=== PATIENT | male | born 1950 | race Caucasian/White ===

== ENCOUNTER 2018-12-28 05:37 | Outpatient (CLI) | payer MEDICARE ==
[~2018-12-28] VITALS: Ht 172 cm; Wt 81.8 kg
[~2018-12-28 05:37] MED LIST: HYDR-34 PO; STOOL SOFTNER
[2018-12-28] MEDS ORDERED: ASPI-586 PO (14:41)
[2018-12-28] MEDS ORDERED: SIMV20TA3 PO (14:41)
== END 2018-12-28 14:59 | disposition home or self-care (01) ==
LOC: PREOP 05:37
PROVIDERS: ATTEND Surgery
DX: Z01.818 Encounter for other preprocedural examination (principal)

== ENCOUNTER → 2019-01-04 | Day surgery (SDC) | payer MEDICARE, OTHER ==
[2019-01-04] VITALS (9 sets, daily range): BP systolic 116–139; BP diastolic 67–94
[~2019-01-04] VITALS: Ht 172.7 cm; Wt 81.8 kg
[~2019-01-04] MED LIST changes: +ACETAMINOPHEN 325 MG TABLET PO PRN; +ASPI-586 PO; +HYDROcodone/APAP 5 MG/325 MG (LORTAB) TAB PO PRN; +LIDOCAINE JELLY 2% 6 ML SYRINGE MM PRN; +NS IV 500 ML 500 ML IV PRN; +NS IV 500 ML 500 ML ONE; +ONDANSETRON 4 MG/2 ML (SDV) Z0FRAN IVP PRN; +SIMV20TA3 PO; +fentaNYL INJECTION 100 MCG/2 ML AMP IVP ONE; +morphine INJ 10 MG/ML 1ML (SYR OR VIAL) IVP PRN
--- NOTE | 2019-01-04 09:32 | Progress Note-Pre Operative ---
Pre-Operative Progress Note H&P Reviewed The H&P was reviewed, patient examined and no changes noted. Date Seen by Provider: Jan 04, 2019 Time Seen by Provider: 09:00 Date H&P Reviewed: Jan 04, 2019 Time H&P Reviewed: 09:00 Pre-Operative Diagnosis: JUSTIN Cullen MD Jan 04, 2019 09:32
--- NOTE | 2019-01-04 09:32 | Conscious Sedation/ASA ---
Conscious Sedation Pre-Proced Time 09:00 ASA Score 2 For ASA 3 and 4: Consider anesthesia and medical clearance. Also, for patients with a history of failed moderate sedation consider anesthesia. Airway Lungs Heart ASA score ASA 1: a normal healthy patient ASA 2: a patient with a mild systemic disease (mid diabetes, controlled hypertension, obesity ASA 3: a patient with a severe systemic disease that limits activity (angina, COPD, prior Myocardial infarction) ASA 4: a patient with an incapacitating disease that is a constant threat to life (CHF, renal failure) ASA 5: a moribund patient not expected to survive 24 hrs. (ruptured aneurysm) ASA 6: a declared brain- patient whose organs are being harvested. For emergent operations, add the letter E after the classification Mallampati Classification Grade 2 Sedation Plan Analgesia, Amnesia, Plan communicated to team members, Discussed options with patient/fam, Discussed risks with patient/fam The patient is an appropriate candidate to undergo the planned procedure, sedation, and anesthesia. The patient immediately re-assessed prior to indication. JUSTIN PERAZA MD Jan 04, 2019 09:31
--- NOTE | 2019-01-04 09:34 | Discharge Inst-Surgical ---
D/C Lap Instructions-STU Follow Up Activity as tolerated High Fiber Diet 25g or more per day Avoid Alcohol, Caffeine, Spicy Culver and Acid foods. Drink 64 fluid oz or more of fluids per day. Symptoms to Report: Fever over 101 degree F, Nausea/Vomiting If any problems/questions: Contact your physician or go to Emergency Room JUSTIN PERAZA MD Jan 04, 2019 09:33
[2019-01-04] MEDS: MIDAZOLAM 5 MG/5 ML (VERSED) VIAL IV PRN ×3 (10:31→10:41)
--- NOTE | 2019-01-04 15:16 | OPERATIVE REPORT ---
DATE OF SERVICE: 01/04/2019 ATTENDING PRIMARY CARE PHYSICIAN: Gloria Weldon DO PREOPERATIVE DIAGNOSIS: Screening colonoscopy. POSTOPERATIVE DIAGNOSIS: Mild chronic stage I external and internal hemorrhoids, remainder of the rectum and colon were normal. PROCEDURE PERFORMED: Colonoscopy. SURGEON: Justin Peraza MD. ANESTHESIA: Conscious sedation. ESTIMATED BLOOD LOSS: Minimal. FINDINGS: Mild chronic stage I external and internal hemorrhoids, remainder of the rectum and colon were normal. DISPOSITION: The patient tolerated the procedure well. INDICATIONS: The patient is a 68-year-old male in need of a screening colonoscopy. His last colonoscopy was approximately 10 years ago and he believes this to be normal. He states that he is otherwise doing well, does not report any major issues with diarrhea nor constipation as well as no red blood per rectum nor any dark tarry stools. He also does not report any family history of colon cancer. DESCRIPTION OF PROCEDURE: The patient was brought to the endoscopy suite, laid in the left lateral decubitus position. After adequate IV pain and sedative medications and conscious sedation anesthesia, a digital rectal examination was performed. Mild chronic stage I external and internal hemorrhoids were identified, which were not actively edematous nor inflamed and no bleeding. Normal sphincter tone was felt and there were no palpable masses. Prostate gland was palpable and appeared normal. The endoscope was then intubated into the anus and rectum gently insufflated. The endoscope was then advanced through the valves of Burroughs of the rectum with no polyps or any neoplasms identified. We then proceeded through the sigmoid colon where no diverticulosis identified. The endoscope was then advanced through the remainder of the descending, transverse and ascending colon to the cecum. These segments were normal. There were no polyps nor any neoplasms identified throughout the colon or rectum. Endoscope was then slowly withdrawn while taking a second look and suctioning of residual air with no additional findings. The patient tolerated the procedure well. We will recommend continued medical management with a high fiber diet with 30 grams of fiber daily as well as significant amounts of water to promote soft stools on a daily basis. He does not need another colonoscopy for another 10 years. Job ID: [id number] DocumentID: [id number] Dictated Date: 01/04/2019 10:56:07 Edger Machine Operator Date: 01/04/2019 15:15:25 Dictated By: JUSTIN PERAZA MD
== END ==
LOC: ENDO 08:43
PROVIDERS: ATTEND Surgery
DX: Z12.11 Encounter for screening for malignant neoplasm of colon (principal); K64.0 First degree hemorrhoids; K64.8 Other hemorrhoids; E78.00 Pure hypercholesterolemia, unspecified; G89.29 Other chronic pain; M54.9 Dorsalgia, unspecified; Z79.82 Long term (current) use of aspirin; Z79.899 Other long term (current) drug therapy; Z87.891 Personal history of nicotine dependence; Z80.1 Family history of malignant neoplasm of trachea, bronchus and lung; Z82.49 Family history of ischemic heart disease and other diseases of the circulatory system

== ENCOUNTER → 2021-01-22 | Outpatient (CLI) | payer MEDICARE, OTHER ==
[~2021-01-22] MED LIST changes: -ACETAMINOPHEN 325 MG TABLET PO PRN; -HYDROcodone/APAP 5 MG/325 MG (LORTAB) TAB PO PRN; -LIDOCAINE JELLY 2% 6 ML SYRINGE MM PRN; -NS IV 500 ML 500 ML IV PRN; -NS IV 500 ML 500 ML ONE; -ONDANSETRON 4 MG/2 ML (SDV) Z0FRAN IVP PRN; +SIMV20TA26 PO; -SIMV20TA3 PO; -fentaNYL INJECTION 100 MCG/2 ML AMP IVP ONE; -morphine INJ 10 MG/ML 1ML (SYR OR VIAL) IVP PRN
--- NOTE | 2021-01-27 12:14 | Holter Monitor ---
HOLTER MONITOR DATE OF PROCEDURE: 01/22/2021. INDICATION: Bradycardia. PROCEDURE: A 24-hour Holter monitor was obtained for a total of 24 hours. The study quality is adequate. RESULTS: 1. Baseline sinus bradycardia with an average heart rate of 59 bpm, ranging from 46-94 bpm. 2. There were rare (26), isolated premature supraventricular complexes. 3. There were occasional (50), isolated premature ventricular complexes and one ventricular triplet (nonsustained ventricular tachycardia). 4. There were no pauses exceeding 2 seconds in duration. 5. There was one cardiac symptom reported in the patient diary that correlated to sinus bradycardia at a heart rate of 55 bpm with no arrhythmias. IMPRESSION: 1. This is a 24-hour Holter monitor report. 2. Baseline sinus bradycardia with an average heart rate of 59 bpm, ranging from 46-94 bpm with rare, isolated premature supraventricular complexes, occasional, isolated premature ventricular complexes and one ventricular triplet (nonsustained ventricular tachycardia). 3. There was one cardiac symptom reported in the patient diary that correlated to sinus bradycardia at a heart rate of 55 bpm with no arrhythmias. Certain portions of this document may have been dictated utilizing voice any gnition technology. Inherent to this technology, typographical and grammatical errors may exist. As much as I am diligent to identify and correct these mistakes, some errors may remain in the document. CLEMENTE TOBIAS JR, MD Jan 27, 2021 12:14
== END ==
LOC: CARD 08:30
PROVIDERS: ATTEND Family Medicine
DX: R00.1 Bradycardia, unspecified (principal)
CPT/HCPCS: 93225; 93226